=== PATIENT | female | born 1945 | race Caucasian/White ===

== ENCOUNTER 2023-01-09 12:16 | Emergency (ER) | payer OTHER ==
[~2023-01-09] VITALS: Ht 170.2 cm; Wt 59.4 kg
[2023-01-09] MEDS ORDERED: COZAAR25 MG PO (12:21)
[2023-01-09] MEDS ORDERED: LIPITOR40 M1 PO (12:21)
[2023-01-09] MEDS ORDERED: TOPROL XL25 M1 PO (12:21)
[2023-01-09] MEDS ORDERED: ELIQUIS2.5 MG PO (12:22)
[2023-01-09] MEDS ORDERED: DUI500 PO (16:31)
== END 2023-01-09 16:40 | disposition home or self-care (01) ==
LOC: ER 12:16
DX: S01.81XA Laceration without foreign body of other part of head, initial encounter (principal); S09.90XA Unspecified injury of head, initial encounter; W18.39XA Other fall on same level, initial encounter; Y93.89 Activity, other specified; Y92.89 Other specified places as the place of occurrence of the external cause; Y99.8 Other external cause status; R55 Syncope and collapse; E11.9 Type 2 diabetes mellitus without complications; I10 Essential (primary) hypertension